=== PATIENT | male | born 1960 | race Caucasian/White ===

== ENCOUNTER 2019-08-17 12:00 | Inpatient (IN) | payer MEDICARE, OTHER ==
[~2019-08-17 12:00] MED LIST: Heparin 10,000 UNITS/ 10 ML VIAL ONE; Iopamidol 370 76% 100 ML VIAL ONE; Iopamidol 370 76% 50 ML VIAL FS ONE
[2019-08-17] MEDS ORDERED: Nitroglycerin 2% Ointment 1 INCH/1 GM Packet ONE (12:06)
[2019-08-17] MEDS ORDERED: hydrALAZINE 20 MG/ML VIAL ONE (12:19)
[2019-08-17 12:21] LABS: #Basophils 0.1 thou/uL (0.0-0.2); #Eosinphils 0.1 thou/uL (0.0-0.7); #Lymphocytes 2.9 thou/uL (1.20-3.40); #Monocytes 0.8 thou/uL (0.11-0.59); #Neutrophils 4.3 thou/uL (1.40-6.50); %Basophils 0.8 % (0.0-1.0); %Eosinophils 1.2 % (0.0-10.0); %Lymphocytes 35.8 % (21.0-51.0); %Monocytes 9.5 % (0.0-10.0); %Neutrophils 52.7 % (42.0-75.0); Hemoglobin 15.2 g/dL (14.0-18.0); Mean Corpuscular HGB CONC 33.5 g/dL (32.0-36.0); Mean Corpuscular Hemoglobin 30.4 pg (27.0-31.0); Mean Corpuscular Volume 90.7 fL (78.0-98.0); Mean Platelet Volume 7.9 fL (7.4-10.4); Platelet Count 203 thou/uL (130-400); RBC Distribution Width 12.3 % (11.5-14.5); Red Blood Cell (RBC) Count 5.01 mill/uL (4.70-6.10); White Blood Cell (WBC) Count 8.2 thou/uL (4.8-10.8)
[2019-08-17 12:27] LABS: INR-International Normal Ratio 2.2; PTT 39.3 SEC (22.9-36.1); Prothrombin Time 24.7 SEC (12.0-14.7)
[2019-08-17 12:41] LABS: ALT (SGPT) 16 U/L (8-55); AST (SGOT) 15 U/L (5-34); Albumin 4.2 g/dL (3.5-5.0); Alkaline Phosphatase 103 U/L (40-110); Anion Gap 13 mmol/L (10-20); BUN (Urea Nitrogen) 18 mg/dL (8.4-25.7); Bilirubin, Total 0.4 mg/dL (0.2-1.2); Calc. Creatinine Clearance 0 mL/min (70-130); Calcium 9.3 mg/dL (7.8-10.44); Carbon Dioxide 23 mmol/L (22-29); Chloride 108 mmol/L (98-107); Estimated GFR-MDRD 55; Globulin 2.9 g/dL (2.4-3.5); Glucose 125 mg/dL (70-105); Potassium 3.9 mmol/L (3.5-5.1); Protein, Total 7.1 g/dL (6.0-8.3); Sodium 140 mmol/L (136-145)
--- NOTE | 2019-08-17 12:50 | RAD ---
PORTABLE CHEST: History: Chest pain FINDINGS: Heart size is within normal limits for portable technique. Post op sternotomy changes are present. Th e lungs are clear of infiltrates. There are no signs of failure. IMPRESSION: No active intrathoracic disease. POS: DEBRA
[2019-08-17 13:02] LABS: CKMB 1.6 ng/mL (0-6.6)
--- NOTE | 2019-08-17 13:52 | CON ---
DATE OF CONSULTATION: 08/17/2019 INDICATION FOR CONSULTATION: This is a middle aged male patient, who has had no previous cardiac history except for an aortic valve replacement in the past due to a bicuspid aortic valve. This was performed several years ago in [place], about 5 years ago. He has been doing relatively well. He was visiting his daughter here, when he bent down to do something around the car and then got back up and noticed that he had some right shoulder pain that had radiated to his chest area. He became dizzy. Eventually, 911 was called and he was brought to the emergency room. EKG did show some T-wave inversions in 1 and aVL, with ST-segment elevation in leads 3 and aVF. Already, he is on Coumadin as well as lisinopril. He was given nitroglycerin en route I believe, and when he arrived here, the EKG changes have improved and his chest and shoulder discomfort about down to 2. At this time, he is comfortable. We do not have any laboratory data as of yet. PAST MEDICAL HISTORY: Significant for hypertension, aortic valve replacement with a mechanical aortic valve. He has had back surgery x3 and history of nephrolithiasis. SOCIAL HISTORY: He has occasional alcohol use, but he denies tobacco abuse. He is . He has children, who are alive and well. REVIEW OF SYSTEMS: A 12-point review of systems was unremarkable except for what was noted in the history of the present illness. PHYSICAL EXAMINATION: GENERAL: Reveals an elderly gentleman. VITAL SIGNS: Blood pressure is 205/95, heart rate 56, O2 saturation 100%. When he originally arrived in the emergency room, the blood pressure was 219/124. HEENT: Shows the head to be normocephalic and atraumatic. Carotid pulses are present and no bruits. CHEST: Clear to auscultation without rales, rhonchi, or wheezing. CARDIOVASCULAR: Reveals a regular rate and rhythm. He has a slight click over the aortic valve area. I do not hear any other significant murmurs, heaves, thrills , bruits, or rubs. ABDOMEN: Shows obesity with positive bowel sounds. No organomegaly or masses noted. EXTREMITIES: Femoral pulses are present. Extremities showed no clubbing, cyanosis, or edema. Pedal pulses are also present. NEUROLOGIC: The patient appears to be fully intact. SKIN: Warm and dry. NEUROLOGIC: Neurologically he appears to be okay as well as psychosocial. DIAGNOSTIC STUDIES: Laboratory data, still pending. EKG shows a sinus bradycardia with a heart rate of 59 beats per minute with T-wave inversions in aVL, only minimal ST-segment elevation, which is less than 0.5 mm in lead 3. Otherwise, there were no acute ST-segment changes. At this time, we will admit this patient, we would continue him on his medications with his Coumadin depending on the level. He will be given aspirin. I think he was already given aspirin, will be given more aspirin if not, and we will continue the lisinopril and we will find medications such as amlodipine or Norvasc, some other medication order to lower the blood pressure, and if he becomes stable, then he maybe a candidate to undergo either stress testing or cardiac catheterization on Monday. Should he develop any further change in the interim, he may become urgent patient for cardiac catheterization. At this time , he appears to be relatively stable and there is no indication for cardiac catheterization emergently. However, should that change, we will be more than happy to take the patient to the solder making laborer. We will also obtain echocardiogram for evaluation of the valvular status as well as his left ventricular systolic function. Job ID: [id number] [facility]OSPITALJulissa
[2019-08-17 15:35] LABS: Troponin I 0.243 ng/mL (< 0.028)
[2019-08-17] MEDS ORDERED: Bisacodyl 5 MG TAB PO PRN (15:53)
[2019-08-17] MEDS ORDERED: Ondansetron ODT 4 MG TAB PO PRN (15:53)
[2019-08-17] MEDS ORDERED: Ondansetron PF 4 MG/2 ML Vial IVP PRN (15:53)
[2019-08-17] MEDS ORDERED: Senokot S 8.6-50 MG TAB PO PRN (15:53)
--- NOTE | 2019-08-17 15:58 | PDOC.HHP ---
Hospitalist HPI - History of Present Illness right arm pain, chest pain History of Present Illness: This is a 59 year old male with past medical history of aortic valve replacement , hypertension who presented to the ER with severe right arm pain. The patient states that this morning he was at his car and dropped his keys on the floor and when he went down to pick them up, he started getting severe right shoulder pain and felt dizzy. The pain radiated to his chest and felt like a pressure. He had no diaphoresis or shortness of breath and had no palpitations. He called 911. EKG showed concern for STEMI and he was given aspirin 324 mg in the EMS. The patient reports improvement in his pain with the aspirin down to a 3/10. His chest pain has resolved. He has had no fevers, chills, runny nose or sore throat. ED Course: Patient upon arrival to the ER had a blood pressure > 200. He was given 10 mg IV hydralazine and nitro. His blood pressure came down to the 170's. Repeat EKG showed mild ST elevation in lead III, sinus bradycardia, first degree AV block. Troponin was 0.040. Chest X ray was normal. Cardiology was consulted in the ER and the patient was started on a heparin drip and cardiology recommended holding off on cath for now. Hospitalist ROS - Review of Systems Constitutional: denies: fever, chills Eyes: denies: vision change ENT: denies: ear pain, ear discharge Respiratory: denies: cough, dry, shortness of breath Cardiovascular: denies: chest pain, palpitations, orthopnea Gastrointestinal: denies: nausea, vomiting, abdominal pain, diarrhea Genitourinary: denies: dysuria, frequency Musculoskeletal: denies: neck pain, shoulder pain, arm pain Skin: denies: rash, lesions, danny Neurological: denies: weakness, numbness Hospitalist History - Past Medical History Cardiac: reports: HTN, Hyperlipidemia, Other (bicuspid valve with aortic valve replacement) - Past Surgical History Other Surgical History: Has had spinal fusion x 8-9 - Family History Other Family History: Grandmother had heart problems - Social History Smoking Status: Never smoker Alcohol: reports: Occassional Drugs: reports: none Living Situation: With Family Occupation: 3 daughters, one is - Exam General Appearance: NAD, awake alert Eye: PERRL, anicteric sclera ENT: normocephalic atraumatic, no oropharyngeal lesions Neck: supple, no JVD Heart: RRR, no murmur, no gallops, no rubs Respiratory: CTAB, no wheezes, no rales, no ronchi Gastrointestinal: soft, non-tender, non-distended, normal bowel sounds Extremities: no cyanosis, no clubbing, no edema Skin: normal turgor, no lesions, no rashes Neurological: cranial nerve grossly intact, normal sensation to touch, no focal deficits, no new deficit Musculoskeletal: normal tone, normal strength, no muscle wasting Psychiatric: normal affect, normal behavior, A&O x 3 Hospitalist Results - Labs Result Diagrams: 08/17/19 12:08 08/17/19 12:08 Lab results: WBC 8.2 thou/uL (4.8-10.8) 08/17/19 12:08 Hgb 15.2 g/dL (14.0-18.0) 08/17/19 12:08 Hct 45.4 % (42.0-52.0) 08/17/19 12:08 MCV 90.7 fL (78.0-98.0) 08/17/19 12:08 Plt Count 203 thou/uL (130-400) 08/17/19 12:08 Neutrophils % 52.7 % (42.0-75.0) 08/17/19 12:08 Sodium 140 mmol/L (136-145) 08/17/19 12:08 Potassium 3.9 mmol/L (3.5-5.1) 08/17/19 12:08 Chloride 108 mmol/L (98-107) H 08/17/19 12:08 Carbon Dioxide 23 mmol/L (22-29) 08/17/19 12:08 BUN 18 mg/dL (8.4-25.7) 08/17/19 12:08 Creatinine 1.33 mg/dL (0.7-1.3) H 08/17/19 12:08 Glucose 125 mg/dL (70-105) H 08/17/19 12:08 Calcium 9.3 mg/dL (7.8-10.44) 08/17/19 12:08 Total Bilirubin 0.4 mg/dL (0.2-1.2) 08/17/19 12:08 AST 15 U/L (5-34) 08/17/19 12:08 ALT 16 U/L (8-55) 08/17/19 12:08 Alkaline Phosphatase 103 U/L (40-110) 08/17/19 12:08 CK-MB (CK-2) 1.6 ng/mL (0-6.6) 08/17/19 12:08 Troponin I 0.243 ng/mL (< 0.028) H 08/17/19 15:03 Serum Total Protein 7.1 g/dL (6.0-8.3) 08/17/19 12:08 Albumin 4.2 g/dL (3.5-5.0) 08/17/19 12:08 - EKG Interpretation EKG: sinus bradycardia, mild ST elevation i n lead III Hospitalist H&P A/P - Plan Plan: This is a 59 year old male with past medical history of hypertension, hyperlipidemia who presented to the ER with chest pain, admitted for STEMi Inferior STEMI - mild ST elevation in lead III, positive troponin which is downtrending. Will check ECHO - s/p aspirin 325 mg, will order atorvastatin 80 mg - continue heparin drip - keep NPO in case pain were to worsen Hyperlipidemia - was not on medications as an outpatient S/p mechanical aortic valve - on coumadin as an outpatient - on heparin drip Code status: full code for now in case patient were need cath per patient, otherwise DNR/DNi
[2019-08-17] MEDS ORDERED: Heparin 10,000 UNITS/ 10 ML VIAL SLOW IVP SCH (16:00)
[2019-08-17] MEDS ORDERED: Heparin 25,000 units/D5W 500 ML IVPB SCH (16:00)
[2019-08-17 16:20] VITALS: BMI 34.2
[2019-08-17 16:26] LABS: Hemoglobin 14.7 g/dL (14.0-18.0); Platelet Count 185 thou/uL (130-400)
[2019-08-17] MEDS ORDERED: Communication Order-Pharmacy FS SCH (16:45)
[2019-08-17] MEDS ORDERED: Verapamil 5 MG/2 ML VIAL ONE (16:51)
[2019-08-17] MEDS ORDERED: Nitroglycerin 100MG/250ML BOT 250 ML ONE ×2 (16:51→18:08)
[2019-08-17] MEDS ORDERED: Heparin 10,000 UNITS/1 ML VIAL ONE (16:51)
[2019-08-17] MEDS ORDERED: Midazolam HCl 2 mg/2 ml Vial ONE (17:29)
[2019-08-17] MEDS ORDERED: Dextrose 50% Abboject 50 ML SYRINGE SLOW IVP PRN (18:33)
[2019-08-17] MEDS ORDERED: HumaLOG 300 UNITS/3 ML VIAL SC PRN (18:33)
[2019-08-17] MEDS ORDERED: Dextrose 5% in Water 1,000 ML IV PRN (18:33)
[2019-08-17] MEDS ORDERED: Acetaminophen/Codeine 30-300mg Tablet PO PRN (19:32)
[2019-08-17] MEDS ORDERED: Zolpidem Tartrate 5 MG TAB PO PRN (19:32)
[2019-08-17] MEDS ORDERED: traMADol HCl 50 MG TAB PO PRN (19:32)
[2019-08-17] MEDS ORDERED: Milk Of Magnesia 30 ML UDCUP PO PRN (19:32)
[2019-08-17] MEDS ORDERED: Mag-Al 1200 mg/1200 mg/30 ML UDCUP PO PRN (19:32)
[2019-08-17 19:34] LABS: PTT Greater than 250.0 SEC (22.9-36.1)
[2019-08-17 19:41] LABS: Troponin I 2.595 ng/mL (< 0.028)
[2019-08-17] MEDS: TICAGRELOR 90 MG TABLET PO SCH (21:07)
[2019-08-17] MEDS: Atorvastatin Calcium 40 MG TAB PO SCH (21:08)
[2019-08-18] MEDS ORDERED: Sodium Chloride 0.9% 1,000 ML IV SCH (01:30)
[2019-08-18 04:40] LABS: Band 1 % (5-11); Eosinophils 1 % (0-10); Hemoglobin 13.8 g/dL (14.0-18.0); Lymphocytes 17 % (21-51); MDiff Complete? YES; Mean Corpuscular HGB CONC 34.6 g/dL (32.0-36.0); Mean Corpuscular Hemoglobin 31.6 pg (27.0-31.0); Mean Corpuscular Volume 91.1 fL (78.0-98.0); Mean Platelet Volume 8.1 fL (7.4-10.4); Monocytes 2 % (0-10); Neutrophil 77 % (42-75); Platelet Count 181 thou/uL (130-400); RBC Distribution Width 12.4 % (11.5-14.5); Reactive Lymphocytes 2 % (0-10); Red Blood Cell (RBC) Count 4.39 mill/uL (4.70-6.10); White Blood Cell (WBC) Count 12.2 thou/uL (4.8-10.8)
[2019-08-18 04:45] LABS: ALT (SGPT) 23 U/L (8-55); AST (SGOT) 92 U/L (5-34); Albumin 3.7 g/dL (3.5-5.0); Alkaline Phosphatase 88 U/L (40-110); Anion Gap 11 mmol/L (10-20); BUN (Urea Nitrogen) 12 mg/dL (8.4-25.7); Bilirubin, Total 0.6 mg/dL (0.2-1.2); Calc. Creatinine Clearance 125 mL/min (70-130); Calcium 8.4 mg/dL (7.8-10.44); Carbon Dioxide 21 mmol/L (22-29); Chloride 109 mmol/L (98-107); Estimated GFR-MDRD 73; Globulin 2.7 g/dL (2.4-3.5); Glucose 139 mg/dL (70-105); Potassium 3.4 mmol/L (3.5-5.1); Protein, Total 6.4 g/dL (6.0-8.3); Sodium 138 mmol/L (136-145)
[2019-08-18] MEDS: Aspirin Chewable 81 MG TAB PO SCH (08:44)
[2019-08-18] MEDS: TICAGRELOR 90 MG TABLET PO SCH ×2 (08:44→20:56)
[2019-08-18] MEDS ORDERED: Aspirin 81 mg Enteric Coated Tablet PO SCH (09:00)
[2019-08-18] MEDS ORDERED: Lisinopril 2.5 MG TAB PO SCH ×2 (09:00→12:45)
[2019-08-18] MEDS ORDERED: Potassium Chloride 20 MEQ TAB PO SCH (09:30)
[2019-08-18] MEDS ORDERED: Atropine Sulfate 1 mg/10 ml Syringe ONE (11:44)
[2019-08-18] MEDS ORDERED: TICAGRELOR 90 MG TABLET ONE (11:44)
[2019-08-18 12:17] LABS: CKMB 58.5 ng/mL (0-6.6)
[2019-08-18] MEDS ORDERED: hydrALAZINE 20 MG/ML VIAL SLOW IVP PRN (12:34)
--- NOTE | 2019-08-18 12:36 | PDOC.CPN ---
- Subjective Date: 08/18/19 Time: 12:43 Interval history: The pt seen and examined. No overnight events. No cardiac complaints. - Objective Allergies/Adverse Reactions: Allergies Allergy/AdvReac Type Severity Reaction Status Date / Time No Known Allergies Allergy Verified 08/17/19 16:14 Visit Medications: Current Medications Acetaminophen/Codeine Phosphate (Tylenol #3) 1 tab PO Q4H PRN PRN Reason: Mild Pain (1-3) Last Admin: 08/18/19 11:32 Dose: 1 tab Al Hydroxide/Mg Hydroxide (Maalox) 30 ml PO Q3H PRN PRN Reason: Indigestion Last Admin: 08/18/19 01:38 Dose: 30 ml Aspirin (Aspirin Chewable) 81 mg PO DAILY [facility] Last Admin: 08/18/19 08:44 Dose: 81 mg Atorvastatin Calcium (Lipitor) 80 mg PO HS [facility] Last Admin: 08/17/19 21:08 Dose: 80 mg Bisacodyl (Dulcolax) 10 mg PO DAILYPRN PRN PRN Reason: Constipation Dextrose/Water (Dextrose 50%) 25 gm SLOW IVP PRN PRN PRN Reason: Hypoglycemia Glucagon (Glucagon) 1 mg IM PRN PRN PRN Reason: Hypoglycemia Hydralazine HCl (Apresoline) 10 mg SLOW IVP Q4H PRN PRN Reason: Hypertension Dextrose/Water (D5w) 1,000 mls @ 0 mls/hr IV .Q0M PRN PRN Reason: Hypoglycemia Insulin Human Lispro (Humalog) 0 units SC .MILD SLIDING SCALE PRN PRN Reason: Mild Correctional Scale Magnesium Hydroxide (Milk Of Magnesium) 30 ml PO Q12H PRN PRN Reason: Constipation Miscellaneous Information (Communication Order-Pharmacy) 0 each FS [facility] Stop: 08/18/19 16:46 Ondansetron HCl (Zofran Odt) 4 mg PO Q6H PRN PRN Reason: Nausea/Vomiting Ondansetron HCl (Zofran) 4 mg IVP Q6H PRN PRN Reason: Nausea/Vomiting Senna/Docusate Sodium (Senokot S) 2 tab PO BIDPRN PRN PRN Reason: Constipation Ticagrelor (Brilinta) 90 mg PO BID [facility] Last Admin: 08/18/19 08:44 Dose: 90 mg Tramadol HCl (Ultram) 50 mg PO Q6H PRN PRN Reason: Moderate Pain (4-6) Zolpidem Tartrate (Ambien) 5 mg PO HSPRN PRN PRN Reason: Insomnia Last Admin: 08/17/19 21:08 Dose: 5 mg Vital Signs & Weight: Vital Signs Temp Pulse Resp BP BP Pulse Ox 08/18/19 12:15 163/80 H 08/18/19 11:33 98.2 F 59 L 17 180/91 H 97 08/18/19 07:05 98.2 F 69 16 171/86 H 97 08/18/19 03:56 98.3 F 66 16 129/69 96 Weight 252 lb 10.396 oz - Physical Exam General: alert & oriented x3 HEENT: mucus membranes moist Neck: supple neck Cardiac: regular rate and rhythm, S1/S2 Lungs: clear to auscultation Neuro: cranial nerve 2-12 intact - Labs Result Diagrams: 08/18/19 04:02 08/18/19 04:02 Troponin/CKMB CK-MB (CK-2) 58.5 ng/mL (0-6.6) H* 08/18/19 11:19 Troponin I 18.601 ng/mL (< 0.028) H* 08/18/19 11:19 - Telemetry Sinus rhythms and dysrhythmias: sinus rhythm - Assessment/Plan Assessment/Plan: 1. CAD with s/p BMS x1 in RCA, 80-90% stenosis in LAD plan for anotherstent to the LAD on Monday; On Lisinopril, Brilinta, Lipitor and ASA; holding BBlocker due to bradycardia 2. HTN - increased Lisinopril today; Hydralazine PRN 3. HLD - on Statin 4. S/p Mechanical Aortic valve in 2014, continue coumadin. MAR reviewed * The pt is from [place]. Pt. seen and eval. by me. I agree with the A/P by the PIPE [employer] APPRENTICE. He feels better post stent yesterday. The TI is elevated and not unexpected. This is some degree of reperfusion due to the subtotal stenosis in the RCA. Chest clear. RRR. radial site from cath is stable.
--- NOTE | 2019-08-18 13:33 | PDOC.HOSPP ---
- Subjective Encounter Date: 08/18/19 Encounter Time: 09:30 Subjective: The patient states his right arm pain has resolved. He denies chest pain, shortness of breath or cough. PLan for heart cath tomorrow to stent LAD - Objective Vital Signs & Weight: Vital Signs (12 hours) Temp Pulse Resp BP BP Pulse Ox 08/18/19 12:15 163/80 H 08/18/19 11:33 98.2 F 59 L 17 180/91 H 97 08/18/19 07:05 98.2 F 69 16 171/86 H 97 08/18/19 03:56 98.3 F 66 16 129/69 96 Weight Weight 252 lb 10.396 oz I&O: 08/17/19 08/18/19 08/19/19 06:59 06:59 06:59 Intake Total 450 Output Total 560 Balance -110 Result Diagrams: 08/18/19 04:02 08/18/19 04:02 Additional Labs: Accuchecks 08/17/19 20:25 POC Glucose 139 H Hospitalist ROS - Review of Systems Constitutional: denies: fever, chills Respiratory: denies: cough, dry Cardiovascular: denies: chest pain, palpitations, orthopnea, paroxysmal noc. dyspnea, edema, light headedness, other - Medication Medications: Active Medications Generic Name Dose Route Start Last Admin Trade Name Freq PRN Reason Stop Dose Admin Acetaminophen/Codeine Phosphate 1 tab 08/17/19 19:32 08/18/19 11:32 Tylenol #3 PO 1 tab Q4H PRN Administration Mild Pain (1-3) Al Hydroxide/Mg Hydroxide 30 ml 08/17/19 19:32 08/18/19 01:38 Maalox PO 30 ml Q3H PRN Administration Indigestion Aspirin 81 mg 08/18/19 09:00 08/18/19 08:44 Aspirin Chewable PO 81 mg DAILY [facility] Administration Atorvastatin Calcium 80 mg 08/17/19 21:00 08/17/19 21:08 Lipitor PO 80 mg HS [facility] Administration Lisinopril 2.5 mg 08/18/19 12:45 08/18/19 12:44 Zestril PO 08/18/19 14:45 2.5 mg NOW STEVEN Administration Ticagrelor 90 mg 08/17/19 21:00 08/18/19 08:44 Brilinta PO 90 mg BID STEV[facility] Administration Zolpidem Tartrate 5 mg 08/17/19 19:32 08/17/19 21:08 Ambien PO 5 mg HSPRN PRN Administration Insomnia - Exam General Appearance: NAD, awake alert Eye: PERRL, anicteric sclera ENT: normocephalic atraumatic, no oropharyngeal lesions, moist mucosa Neck: supple, symmetric, no JVD, no carotid bruit Heart: RRR, no murmur, no gallops, no rubs, normal peripheral pulses Respiratory: CTAB, no wheezes, no rales, no ronchi, no tachypnea Gastrointestinal: soft, non-tender, non-distended, normal bowel sounds, no palpable masses, no hepatomegaly Extremities: no cyanosis, no clubbing, no edema Skin: normal turgor, no lesions, no rashes Neurological: normal sensation to touch, no weakness, no focal deficits, no new deficit Musculoskeletal: normal tone, normal strength, no muscle wasting Psychiatric: normal affect, normal behavior, A&O x 3 Hosp A/P - Plan ECHO: Ef 60-65, normal functioning prosthetic valve. Trace MR. Mild TR Heart cath : 99% lesion RCA, 80-90% LAD This is a 59 year old male with past medical history of hypertension, hyperlipidemia who presented to the ER with chest pain, admitted for STEMi Inferior STEMI s/p PCI to - mild ST elevation in lead III, positive troponin up to 18, CKMB 58. He is s/p PCI to RCA due to 99% lesion. Plan for left heart cath tomorrow to reassess LAD - continue aspirin, statin, heparin drip - lisinopril 2.5 mg daily started - holding betablocker due to bradycardia Hyperlipidemia - started statin S/p mechanical aortic valve - on coumadin as an outpatient - on heparin drip
[2019-08-18 16:04] LABS: Critical Call Chem Troponin I RESULT DECREASING; Troponin I 14.819 ng/mL (< 0.028)
[2019-08-18] MEDS ORDERED: Nitroglycerin 0.4 MG TAB (25 Tab Bottle) SL PRN (17:38)
[2019-08-18] MEDS: Atorvastatin Calcium 40 MG TAB PO SCH (20:56)
[2019-08-19] MEDS: Aspirin Chewable 81 MG TAB PO SCH (06:07)
[2019-08-19] MEDS: TICAGRELOR 90 MG TABLET PO SCH (06:08)
[2019-08-19] MEDS ORDERED: Heparin 10,000 UNITS/1 ML VIAL ONE (06:27)
[2019-08-19] MEDS ORDERED: Nitroglycerin 100MG/250ML BOT 250 ML ONE (06:27)
[2019-08-19] MEDS ORDERED: Verapamil 5 MG/2 ML VIAL ONE (07:17)
[2019-08-19] MEDS ORDERED: Midazolam HCl 2 mg/2 ml Vial ONE ×3 (07:27→07:55)
--- NOTE | 2019-08-19 08:55 | PDOC.CPN ---
- Subjective Date: 08/19/19 Time: 07:00 - Objective Allergies/Adverse Reactions: Allergies Allergy/AdvReac Type Severity Reaction Status Date / Time No Known Allergies Allergy Verified 08/17/19 16:14 Visit Medications: Current Medications Acetaminophen/Codeine Phosphate (Tylenol #3) 1 tab PO Q4H PRN PRN Reason: Mild Pain (1-3) Last Admin: 08/18/19 11:32 Dose: 1 tab Al Hydroxide/Mg Hydroxide (Maalox) 30 ml PO Q3H PRN PRN Reason: Indigestion Last Admin: 08/18/19 01:38 Dose: 30 ml Aspirin (Aspirin Chewable) 81 mg PO DAILY [facility] Last Admin: 08/19/19 06:07 Dose: 81 mg Atorvastatin Calcium (Lipitor) 40 mg PO HS [facility] Bisacodyl (Dulcolax) 10 mg PO DAILYPRN PRN PRN Reason: Constipation Dextrose/Water (Dextrose 50%) 25 gm SLOW IVP PRN PRN PRN Reason: Hypoglycemia Glucagon (Glucagon) 1 mg IM PRN PRN PRN Reason: Hypoglycemia Hydralazine HCl (Apresoline) 10 mg SLOW IVP Q4H PRN PRN Reason: SBP GREATER THAN 160 Last Admin: 08/18/19 21:01 Dose: 10 mg Dextrose/Water (D5w) 1,000 mls @ 0 mls/hr IV .Q0M PRN PRN Reason: Hypoglycemia Insulin Human Lispro (Humalog) 0 units SC .MILD SLIDING SCALE PRN PRN Reason: Mild Correctional Scale Lisinopril (Zestril) 5 mg PO DAILY [facility] Last Admin: 08/19/19 06:07 Dose: 5 mg Magnesium Hydroxide (Milk Of Magnesium) 30 ml PO Q12H PRN PRN Reason: Constipation Nitroglycerin (Nitrostat) 0.4 mg SL Q5MIN PRN PRN Reason: Chest Pain Ondansetron HCl (Zofran Odt) 4 mg PO Q6H PRN PRN Reason: Nausea/Vomiting Ondansetron HCl (Zofran) 4 mg IVP Q6H PRN PRN Reason: Nausea/Vomiting Senna/Docusate Sodium (Senokot S) 2 tab PO BIDPRN PRN PRN Reason: Constipation Sodium Chloride (Flush - Normal Saline) 10 ml IVF Q12HR [facility] Sodium Chloride (Flush - Normal Saline) 10 ml IVF PRN PRN PRN Reason: Saline Flush Ticagrelor (Brilinta) 90 mg PO BID [facility] Last Admin: 08/19/19 06:08 Dose: 90 mg Tramadol HCl (Ultram) 50 mg PO Q6H PRN PRN Reason: Moderate Pain (4-6) Zolpidem Tartrate (Ambien) 5 mg PO HSPRN PRN PRN Reason: Insomnia Last Admin: 08/17/19 21:08 Dose: 5 mg Vital Signs & Weight: Vital Signs Temp Pulse Resp BP BP Pulse Ox 08/19/19 06:07 70 08/19/19 03:08 99.2 F 70 18 137/73 97 08/18/19 22:25 161/77 H 08/18/19 21:01 63 Weight 252 lb 10.396 oz - Quality Measures CV meds: Beta Adrián: No (bradycardia.), RAYMUNDO/ARB: Yes, Statin: Yes, ASA: Yes - Physical Exam General: alert & oriented x3 HEENT: normocephaly Neck: no JVD/HJR Cardiac: regular rate and rhythm, no murmur Lungs: clear to auscultation, normal exam Neuro: grossly intact Abdomen: soft, non-tender Extremities: no cyanosis, no clubbing, no edema Musculoskeletal: normal range of motion - Labs Result Diagrams: 08/18/19 04:02 08/18/19 04:02 Troponin/CKMB CK-MB (CK-2) 58.5 ng/mL (0-6.6) H* 08/18/19 11:19 Troponin I 14.819 ng/mL (< 0.028) H* 08/18/19 15:22 - Telemetry Sinus rhythms and dysrhythmias: sinus rhythm - Assessment/Plan Assessment/Plan: 1. CAD with s/p BMS x1 in RCA, 80-90% stenosis in LAD plan for another stent to the LAD this AM; On Lisinopril, Brilinta, Lipitor and ASA; holding BBlocker due to bradycardia 2. HTN - Lisinopril ; Hydralazine PRN 3. HLD - on Statin. check FLP 4. S/p Mechanical Aortic valve in 2014, continue coumadin. MAR reviewed * The pt is from [employer].
[2019-08-19] MEDS ORDERED: Lisinopril 5 MG TAB PO SCH (09:00)
[2019-08-19] MEDS ORDERED: Iopamidol 370 76% 50 ML VIAL FS ONE (09:28)
[2019-08-19] MEDS ORDERED: Iopamidol 370 76% 100 ML VIAL ONE (09:28)
[2019-08-19 09:45] LABS: Anion Gap 13 mmol/L (10-20); BUN (Urea Nitrogen) 12 mg/dL (8.4-25.7); Calc. Creatinine Clearance 119 mL/min (70-130); Calcium 9.2 mg/dL (7.8-10.44); Carbon Dioxide 21 mmol/L (22-29); Cardiac Risk 4.3 (Less than 4.5); Chloride 106 mmol/L (98-107); Cholesterol 168 mg/dl (< 200 Desired); Estimated GFR-MDRD 69; Glucose 115 mg/dL (70-105); HDL Cholesterol 39 mg/dL (>60 Neg Risk); LDL Cholesterol, Calculated 114 mg/dL; Potassium 3.8 mmol/L (3.5-5.1); Sodium 136 mmol/L (136-145); Triglycerides 75 mg/dL (Less than 150)
[2019-08-19 09:53] LABS: Hemoglobin 15.7 g/dL (14.0-18.0); Mean Corpuscular HGB CONC 33.5 g/dL (32.0-36.0); Mean Corpuscular Hemoglobin 30.9 pg (27.0-31.0); Mean Platelet Volume 7.8 fL (7.4-10.4); Platelet Count 191 thou/uL (130-400); RBC Distribution Width 12.6 % (11.5-14.5); White Blood Cell (WBC) Count 7.9 thou/uL (4.8-10.8)
[2019-08-19 16:09] LABS: Hemoglobin 15.6 g/dL (14.0-18.0); Platelet Count 196 thou/uL (130-400)
--- NOTE | 2019-08-19 17:00 | EKG ---
Test Reason : POST STENTS X 2-LAD Blood Pressure : / mmHG Vent. Rate : 062 BPM Atrial Rate : 062 BPM P-R Int : 240 ms QRS Dur : 090 ms QT Int : 434 ms P-R-T Axes : 038 -31 -50 degrees QTc Int : 440 ms Sinus rhythm with 1st degree A-V block Left axis deviation Inferior infarct (cited on or before 17-AUG-2019) Abnormal ECG When compared with ECG of 18-AUG-2019 05:17, (Unconfirmed) T wave inversion now evident in Inferior leads T wave inversion less evident in Lateral leads Confirmed by DR. Emily SAM ([id number]) on 08/19/2019 4:59:48 PM Referred By: PRINCE Confirmed By:DR. Emily SAM
--- NOTE | 2019-08-19 17:07 | EKG ---
Test Reason : CHEST PAIN Blood Pressure : / mmHG Vent. Rate : 050 BPM Atrial Rate : 050 BPM P-R Int : 264 ms QRS Dur : 090 ms QT Int : 430 ms P-R-T Axes : 054 015 110 degrees QTc Int : 392 ms Sinus bradycardia with 1st degree A-V block Inferior infarct , possibly acute T wave abnormality, consider lateral ischemia or reciprocal changes * ACUTE RI * Consider right ventricular involvement in acute inferior infarct Abnormal ECG No previous ECGs available Confirmed by DR. Kaur NASSAR ([id number]) on 08/19/2019 5:07:40 PM Referred By: [facility] Confirmed By:DR. Kaur NASSAR
--- NOTE | 2019-08-19 17:10 | EKG ---
Test Reason : STAT Blood Pressure : / mmHG Vent. Rate : 054 BPM Atrial Rate : 054 BPM P-R Int : 266 ms QRS Dur : 092 ms QT Int : 434 ms P-R-T Axes : 048 -18 099 degrees QTc Int : 411 ms Sinus bradycardia with 1st degree A-V block Inferior infarct , age undetermined possible acute Cannot rule out Anterior infarct , age undetermined T wave abnormality, consider lateral ischemia Abnormal ECG No previous ECGs available Confirmed by DR. Kaur NASSAR ([id number]) on 08/19/2019 5:10:04 PM Referred By: Bruno MORRISON Confirmed By:DR. Kaur NASSAR
[2019-08-19 17:11] VITALS: BP 145/86; TEMP 98.3
--- NOTE | 2019-08-19 17:11 | EKG ---
Test Reason : STAT Blood Pressure : / mmHG Vent. Rate : 073 BPM Atrial Rate : 073 BPM P-R Int : 266 ms QRS Dur : 088 ms QT Int : 386 ms P-R-T Axes : 057 -15 112 degrees QTc Int : 425 ms Sinus rhythm with 1st degree A-V block Inferior infarct (cited on or before 17-AUG-2019) T wave abnormality, consider lateral ischemia Abnormal ECG When compared with ECG of 17-AUG-2019 19:38, (Unconfirmed) No significant change was found Confirmed by DR. Kaur NASSAR ([id number]) on 08/19/2019 5:10:59 PM Referred By: Bruno MORRISON Confirmed By:DR. Kaur NASSAR
[2019-08-19] MEDS ORDERED: Atorvastatin Calcium 40 MG TAB PO SCH ×2 (21:00)
== END 2019-08-19 18:20 | disposition home or self-care (01) | DRG 249 ==
LOC: ERS 12:00 → 2NO 16:10
PROVIDERS: ADMIT Internal Medicine; ATTEND Internal Medicine
PROC: 02713DZ Dilation of Coronary Artery, Two Arteries with Intraluminal Device, Percutaneous Approach (ICD-10-PCS; principal; 2019-08-17)
PROC: 02C13ZZ Extirpation of Matter from Coronary Artery, Two Arteries, Percutaneous Approach (ICD-10-PCS; 2019-08-17)
PROC: B2111ZZ Fluoroscopy of Multiple Coronary Arteries using Low Osmolar Contrast (ICD-10-PCS; 2019-08-17)
DX: I21.19 ST elevation (STEMI) myocardial infarction involving other coronary artery of inferior wall (principal); I25.10 Atherosclerotic heart disease of native coronary artery without angina pectoris; I10 Essential (primary) hypertension; E78.5 Hyperlipidemia, unspecified; Z95.2 Presence of prosthetic heart valve; Z98.1 Arthrodesis status
CPT/HCPCS: 36415; 36416; 71045; 80048; 80053; 80061; 82553; 84484; 85007; 85014; 85018; 85025; 85027; 85049; 85347; 85610; 85730; 92928; 92941; 93005; 93010; 93306; 93454; 93798; 94760; 96365; 96366; 96375; 96376; 99152; 99153; C1769; C1876; C1887; J0360; J0461; J1644; J2250; Q9967